=== PATIENT | female | born 1960 | race Caucasian/White ===

== ENCOUNTER → 2018-03-01 | Outpatient (CLI) | payer BC ==
[~2018-03-01] MED LIST: MIRA25TA PO; MIRA50TA PO
[2018-03-01 12:48] LABS: BASOPHILS # (AUTO) 0.03 x10^3/uL (0-0.1); BASOPHILS % (AUTO) 0 % (0-1); EOSINOPHILS # (AUTO) 0.09 x10^3/uL (0-0.4); EOSINOPHILS % (AUTO) 1 % (1-7); LYMPHOCYTES # (AUTO) 2.05 x10^3/uL (1-3.4); LYMPHOCYTES % (AUTO) 29 % (22-44); MD NO; MEAN CORPUSCULAR HEMOGLOBIN 30.8 pg (27.0-34.8); MEAN CORPUSCULAR HGB CONC 33.9 g/dL (32.4-35.8); MEAN CORPUSCULAR VOLUME 90.8 fL (80-100); MONOCYTES # (AUTO) 0.48 x10^3/uL (0.2-0.8); MONOCYTES % (AUTO) 7 % (2-9); NEUTROPHILS # (AUTO) 4.45 x10^3/uL (1.8-6.8); NEUTROPHILS % (AUTO) 63 % (42-75); PLATELET COUNT 271 x10^3/uL (130-400)
[2018-03-01 12:58] LABS: ANION GAP 7 mmol/L (5-15); CALCIUM 9.2 mg/dL (8.5-10.1); CHLORIDE 107 mmol/L (98-107)
[2018-03-01 13:00] LABS: CREATININE 0.48 mg/dL (0.55-1.02)
== END | disposition home or self-care (01) ==
LOC: STAR 11:41
PROVIDERS: ATTEND Obstetrics & Gynecology Female Pelvic Medicine and Reconstructive Surgery
DX: Z01.818 Encounter for other preprocedural examination (principal); N95.0 Postmenopausal bleeding; N39.3 Stress incontinence (female) (male)
CPT/HCPCS: 36415; 71046; 80048; 85025; 93005

== ENCOUNTER 2018-03-25 07:34 | Day surgery (SDC) | payer BC ==
[2018-03-01 12:12] VITALS: BP 103/68
[~2018-03-25] VITALS: Ht 162.6 cm; Wt 78.0 kg
[~2018-03-25 07:34] MED LIST changes: +BUPIVACAINE/PF-EPI 0.25% 1:200K ONE; +INDIGO CARMINE 0.8%, 5ML ONE
[2018-03-25] MEDS ORDERED: MIDAZOLAM 1 MG/ML, 2ML ONE (07:40)
[2018-03-25] MEDS ORDERED: FENTANYL PF 250 MCG/5ML ONE (07:40)
[2018-03-25] MEDS ORDERED: ONDANSETRON 2MG/ML, 2ML ONE ×2 (07:41→10:07)
[2018-03-25] MEDS ORDERED: SUCCINYLCHOLINE 20 MG/ML, 10ML ONE (07:41)
[2018-03-25] MEDS ORDERED: PROPOFOL 10 MG/ML, 20ML ONE (07:41)
[2018-03-25] MEDS ORDERED: NEOSTIGMINE 1 MG/ML, 10ML ONE (07:41)
[2018-03-25] MEDS ORDERED: LACTATED RINGERS 1,000 ML IV SCH ×2 (07:41→10:02)
[2018-03-25] MEDS ORDERED: GLYCOPYRROLATE 0.2MG/1ML, 5ML ONE (07:41)
[2018-03-25] MEDS ORDERED: DEXAMETHASONE 4 MG/ML, 1ML ONE (07:41)
[2018-03-25] MEDS ORDERED: ROCURONIUM 10MG/ML,5ML ONE (07:41)
[2018-03-25] MEDS ORDERED: CEFAZOLIN 1,000 MG ONE (07:41)
[2018-03-25] MEDS ORDERED: ONDANSETRON 2MG/ML, 2ML IV PRN (08:00)
[2018-03-25] MEDS ORDERED: ONDANSETRON ODT 8 MG PO PRN (08:00)
[2018-03-25] MEDS ORDERED: LABETALOL 5MG/ML, 20ML IV PRN (08:00)
[2018-03-25] MEDS ORDERED: MEPERIDINE/PF 25MG/0.5ML IVPush PRN (08:00)
[2018-03-25] MEDS ORDERED: OXYcodone 5 MG/5 ML ORAL.SOL UDC PO PRN (08:00)
[2018-03-25] MEDS ORDERED: PROMETHAZINE 25 MG/ML, 1ML IV PRN (08:00)
[2018-03-25] MEDS ORDERED: GABAPENTIN 300 MG CAPSULE PO ONE (08:00)
[2018-03-25] MEDS ORDERED: hydrALAzine 20 MG/ML, 1ML IV PRN (08:00)
[2018-03-25] MEDS ORDERED: ACETAMINOPHEN 325 MG TABLET PO PRN (08:00)
[2018-03-25] MEDS ORDERED: PROMETHAZINE 25 MG/ML, 1ML IM PRN ×2 (08:00)
[2018-03-25] MEDS ORDERED: PROMETHAZINE 25 MG SUPP PR PRN (08:00)
[2018-03-25] MEDS ORDERED: ACETAMINOPHEN 500 MG TABLET PO ONE (08:00)
[2018-03-25] MEDS ORDERED: PROMETHAZINE 12.5 MG SUPP PR PRN (08:00)
[2018-03-25] MEDS ORDERED: HYDROmorphone 1 MG/ML, 1ML IV PRN (08:00)
[2018-03-25] MEDS ORDERED: MORPHINE SULFATE 4 MG/ML, 1ML IVPush PRN (08:00)
[2018-03-25] MEDS ORDERED: KETOROLAC 30 MG/1 ML ONE (08:06)
[2018-03-25] MEDS ORDERED: CEFOTETAN PMX 2GM/50ML 50 ML ONE (08:16)
[2018-03-25] MEDS ORDERED: NEOMY/POLYMYXIN B GU IRR. 1 ML IRRIG ONE (08:17)
[2018-03-25] MEDS ORDERED: FENTANYL PF 100 MCG/2ML ONE ×2 (09:01→10:13)
[2018-03-25] MEDS ORDERED: BUPIVACAINE/PF-EPI 0.25% 1:200K ONE (09:44)
[2018-03-25] MEDS: FENTANYL PF 100 MCG/2ML IV PRN ×2 (10:14→10:33)
[2018-03-25] MEDS ORDERED: PROMETHAZINE 25 MG/ML, 1ML ONE (10:23)
[2018-03-25] MEDS ORDERED: PROMETHAZINE 25 MG SUPP PR ONE (10:30)
[2018-03-25] MEDS ORDERED: IBUPROFEN 600 MG TABLET PO PRN (10:30)
[2018-03-25] MEDS ORDERED: ONDANSETRON 2MG/ML, 2ML IVPush PRN (10:30)
[2018-03-25] MEDS ORDERED: HYDROcodone/APAP 5/325 TABLET PO PRN (10:30)
== END 2018-03-25 13:10 | disposition home or self-care (01) ==
LOC: OUT 07:34
PROVIDERS: ATTEND Obstetrics & Gynecology Female Pelvic Medicine and Reconstructive Surgery
DX: D25.0 Submucous leiomyoma of uterus (principal); N84.0 Polyp of corpus uteri; N39.3 Stress incontinence (female) (male); N95.0 Postmenopausal bleeding; Z98.890 Other specified postprocedural states; Z72.89 Other problems related to lifestyle
CPT/HCPCS: 57288; 58571; 88307; C1771; J0690; J1100; J1885; J2250; J2405; J2550; J2704; J2710; J3010; J3490; J7120; J0330